=== PATIENT | female | born 1955 | race Two or more races ===

== ENCOUNTER 2017-09-12 22:36 | Emergency (ER) | payer MEDICARE, OTHER ==
[~2017-09-12] VITALS: Ht 165.1 cm; Wt 66.0 kg
[2017-09-12] MEDS ORDERED: SODIUM CHLORIDE 0.9% 1,000 ML IV ONE (23:01)
[2017-09-12 23:14] VITALS: BP 128/62
[2017-09-12 23:25] LABS: BASOPHILS % 0.6 % (0.0-2.0); EOSINOPHILS % 0.8 % (0.0-5.0); HEMATOCRIT. 28.6 % (36.0-48.0); HEMOGLOBIN. 9.5 g/dL (12.0-16.0); LYMPHOCYTES % 15.4 % (20.0-50.0); MEAN CORPUSCULAR HEMOGLOBIN 27.1 pg (28.0-32.0); MEAN CORPUSCULAR VOLUME 81.1 fL (81.0-99.0); MEAN PLATELET VOLUME 6.9 fl (7.4-10.4); MONOCYTES % 9.3 % (2.0-8.0); NEUTROPHILS % 73.9 % (40.0-76.0); PLATELET 480 x1000/uL (130-400); RED BLOOD CELL COUNT 3.53 mill/uL (4.2-5.4); RED CELL DISTRIBUTION WIDTH 14.1 % (11.6-14.6)
[2017-09-12 23:32] LABS: INR 1.1; PROTHROMBIN TIME 11.1 sec (9.4-11.6)
[2017-09-12 23:37] LABS: AMMONIA 22 uMol/L (<32)
[2017-09-12 23:42] LABS: CARBON DIOXIDE 27 mEq/L (21-32); CHLORIDE 99 mEq/L (98-107); CREATINE KINASE 26 IU/L (26-192); ETHANOL BLOOD < 10 mg/dL; TROPONIN I < 0.02 ng/mL (0.00-0.04)
[2017-09-13] MEDS ORDERED: KCL 20MEQ/100ML PREMIX 100 ML IV ONE (00:15)
[2017-09-13] MEDS ORDERED: SODIUM CHLORIDE 0.9% 1,000 ML IV ONE (00:17)
== END 2017-09-13 00:15 | disposition left against medical advice (07) ==
LOC: ER 22:36
DX: R55 Syncope and collapse (principal); E87.6 Hypokalemia; E87.2 Acidosis; I10 Essential (primary) hypertension; E78.00 Pure hypercholesterolemia, unspecified; G30.9 Alzheimer's disease, unspecified; N81.10 Cystocele, unspecified; F02.80 Dementia in other diseases classified elsewhere, unspecified severity, without behavioral disturbance, psychotic disturbance, mood disturbance, and anxiety; Z90.710 Acquired absence of both cervix and uterus
CPT/HCPCS: 36415; 80053; 82140; 82550; 83605; 83690; 84443; 84484; 85025; 85610; 93005; 96360; 99285; G0482; J7030; A4315

== ENCOUNTER 2019-01-24 11:56 | Emergency (ER) | payer MEDICARE, MEDICAID ==
[~2019-01-24] VITALS: Ht 165.1 cm; Wt 41.0 kg
[2019-01-24 12:03] VITALS: BP 120/80
== END 2019-01-24 12:37 | disposition left against medical advice (07) ==
LOC: ER 11:56
DX: Z53.21 Procedure and treatment not carried out due to patient leaving prior to being seen by health care provider (principal)

== ENCOUNTER 2019-02-23 12:38 | Emergency (ER) | payer MEDICARE, MEDICAID ==
[~2019-02-23] VITALS: Ht 165.1 cm; Wt 60.0 kg
[2019-02-23] MEDS ORDERED: SODIUM CHLORIDE 0.9% 1,000 ML IV ONE (12:55)
[2019-02-23 13:17] LABS: BASOPHILS % 0.8 % (0.0-2.0); EOSINOPHILS % 2.9 % (0.0-5.0); HEMATOCRIT. 28.8 % (36.0-48.0); HEMOGLOBIN. 8.5 g/dL (12.0-16.0); LYMPHOCYTES % 30.5 % (20.0-50.0); MEAN CORPUSCULAR HEMOGLOBIN 20.8 pg (28.0-32.0); MEAN CORPUSCULAR VOLUME 70.1 fL (81.0-99.0); MEAN PLATELET VOLUME 7.3 fl (7.4-10.4); MONOCYTES % 7.9 % (2.0-8.0); NEUTROPHILS % 57.9 % (40.0-76.0); PLATELET 398 x1000/uL (130-400); RED BLOOD CELL COUNT 4.11 mill/uL (4.2-5.4); RED CELL DISTRIBUTION WIDTH 18.4 % (11.6-14.6)
[2019-02-23 13:22] LABS: CLARITY URINE CLOUDY (CLEAR); COLOR URINE YELLOW (YELLOW); KETONES URINE NEGATIVE (NEGATIVE); LEUKOCYTE ESTERASE URINE TRACE (NEGATIVE); NITRITE URINE POSITIVE (NEGATIVE); OCCULT BLOOD URINE NEGATIVE (NEGATIVE); PH URINE 6.5 (4.5-8.0); PROTEIN URINE NEGATIVE (NEGATIVE); SPECIFIC GRAVITY URINE 1.015 (1.005-1.030); UROBILINOGEN URINE 0.2 E.U./dL (0.2-1.0)
[2019-02-23 13:25] LABS: CHLORIDE 112 mEq/L (98-107)
[2019-02-23 13:34] LABS: PROTHROMBIN TIME 9.7 sec (9.1-11.1)
[2019-02-23] MEDS ORDERED: LORAZEPAM 2MG/ML CPJ IV ONE (14:00)
[2019-02-23] MEDS ORDERED: CEFTRIAXONE 1 G PREMIX 50 ML IV ONE (14:00)
[2019-02-23] MEDS ORDERED: CLONAZEPAM 0.5MG TABLET PO ONE (14:30)
[2019-02-23 17:00] VITALS: BP 129/71
== END 2019-02-23 17:00 | disposition left against medical advice (07) ==
LOC: ER 12:38 → EDBEDREQ 14:31 → ER 17:00 → CANBEDREQ 20:26
DX: N39.0 Urinary tract infection, site not specified (principal); F03.90 Unspecified dementia, unspecified severity, without behavioral disturbance, psychotic disturbance, mood disturbance, and anxiety; E78.00 Pure hypercholesterolemia, unspecified; I10 Essential (primary) hypertension; R56.9 Unspecified convulsions
CPT/HCPCS: 36415; 71045; 80053; 81003; 83605; 84145; 84484; 85025; 85610; 87040; 87077; 87086; 87186; 93005; 96361; 96365; 96366; 99284; J0696; J7030

== ENCOUNTER 2020-08-31 22:26 | Inpatient (IN) | payer MEDICARE, MEDICAID ==
[~2020-08-31] VITALS: Ht 157.5 cm; Wt 44.0 kg
[2020-08-31] MEDS ORDERED: SODIUM CHLORIDE 0.9% 1,000 ML IV ONE (22:45)
[2020-08-31] MEDS ORDERED: AMPICILLIN SOD/SULBACTAM NA 1.5 G in SODIUM CHLORIDE 0.9% 50 ML IV SCH (23:00)
[2020-08-31 23:46] LABS: HEMATOCRIT. 36.7 % (36.0-48.0); HEMOGLOBIN. 11.8 g/dL (12.0-16.0); MEAN CORPUSCULAR HEMOGLOBIN 29.9 pg (28.0-32.0); MEAN CORPUSCULAR VOLUME 93.3 fL (81.0-99.0); MEAN PLATELET VOLUME 8.7 fl (7.4-10.4); PLATELET 258 x1000/uL (130-400); RED BLOOD CELL COUNT 3.93 mill/uL (4.2-5.4); RED CELL DISTRIBUTION WIDTH 14.9 % (11.6-14.6)
[2020-08-31 23:52] LABS: CHLORIDE 111 mEq/L (98-107)
[2020-08-31 23:53] LABS: INR 1.3; PROTHROMBIN TIME 13.1 sec (9.6-11.0)
[2020-09-01] VITALS (44 sets, daily range): BP systolic 91–150; BP diastolic 37–102
[2020-09-01 00:04] LABS: CLARITY URINE TURBID (CLEAR); COLOR URINE DARK YELLOW (YELLOW); KETONES URINE TRACE (NEGATIVE); LEUKOCYTE ESTERASE URINE 3+ (NEGATIVE); NITRITE URINE NEGATIVE (NEGATIVE); OCCULT BLOOD URINE 2+ (NEGATIVE); PROTEIN URINE 2+ (NEGATIVE); SPECIFIC GRAVITY URINE 1.019 (1.005-1.030)
[2020-09-01] MEDS ORDERED: AMPICILLIN SOD/SULBACTAM NA 1.5 G in SODIUM CHLORIDE 0.9% 50 ML IV NR (00:15)
[2020-09-01] MEDS ORDERED: SODIUM CHLORIDE 0.9% 1,000 ML IV NR (00:15)
[2020-09-01 00:22] LABS: *BARBITURATES SCREEN URINE NEGATIVE (NEGATIVE)
[2020-09-01 00:23] LABS: *AMPHETAMINES SCREEN URINE NEGATIVE (NEGATIVE); *BENZODIAZEPINES SCREEN URINE NEGATIVE (NEGATIVE); *COCAINE SCREEN URINE NEGATIVE (NEGATIVE); METHADONE URINE SCREEN NEGATIVE (NEGATIVE)
[2020-09-01 00:24] LABS: CANNABINOID URINE SCREEN NEGATIVE (NEGATIVE); OPIATES URINE SCREEN NEGATIVE (NEGATIVE); PHENCYCLIDINE URINE SCREEN NEGATIVE (NEGATIVE)
[2020-09-01] MEDS ORDERED: FUROSEMIDE 40MG/4ML VIAL IVP NR (01:00)
[2020-09-01] MEDS ORDERED: INSULIN REGULAR (HUMULIN R) 300UNITS/3ML SUBCUT ONE (01:00)
[2020-09-01] MEDS ORDERED: DEXTROSE 50% WATER 50ML SYRINGE IV ONE (01:00)
[2020-09-01] MEDS ORDERED: CALCIUM GLUCONATE 100MG/ML 10ML VIAL IV ONE (01:00)
[2020-09-01] MEDS ORDERED: NOREPINEPHRINE 8MG/250ML PMX 250 ML IV ONE (04:30)
[2020-09-01 05:16] LABS: PLATELET ESTIMATE NORMAL
[2020-09-01] MEDS ORDERED: ONDANSETRON HCL 4MG/2ML INJ IV PRN (11:00)
[2020-09-01] MEDS ORDERED: IPRATROPIUM/ALBUTEROL 0.5-3(2.5)MG/3ML NEB HHN PRN (11:00)
[2020-09-01] MEDS ORDERED: NOREPINEPHRINE 8 MG in DEXT 5% WATER 242 ML IV PRN (11:00)
[2020-09-01] MEDS ORDERED: DOCU-138 PO (11:12)
[2020-09-01] MEDS ORDERED: DIVA500T3 PO (11:12)
[2020-09-01] MEDS ORDERED: QUET25TA PO (11:12)
[2020-09-01] MEDS ORDERED: GLYC2TAB21 PO (11:12)
[2020-09-01] MEDS ORDERED: CLON0.5T PO (11:12)
[2020-09-01] MEDS ORDERED: CITA20TA19 PO (11:12)
[2020-09-01] MEDS ORDERED: SENN-170 PO (11:12)
[2020-09-01] MEDS ORDERED: TOPUD PO (11:12)
[2020-09-01] MEDS: DIVALPROEX SODIUM 500MG DR TABLET PO SCH ×2 (12:00→20:31)
[2020-09-01] MEDS ORDERED: DOCUSATE SODIUM 100MG CAPSULE PO SCH (12:00)
[2020-09-01] MEDS ORDERED: GLYCOPYRROLATE 1MG TABLET PO SCH (13:00)
[2020-09-01] MEDS: MIDODRINE HCL 5MG TABLET PO SCH ×2 (13:00→17:31)
[2020-09-01] MEDS: PIPERACILLIN/TAZOBACTAM 3.375 G in DEXT 5% WATER 100 ML IV SCH ×2 (13:19→17:31)
[2020-09-01] MEDS: DEXT 5%/0.45% NACL 1000ML 1,000 ML IV SCH (13:22)
[2020-09-01] MEDS: CITALOPRAM HYDROBROMIDE 10MG TABLET PO SCH (15:02)
[2020-09-01] MEDS: DOCUSATE SODIUM SUGAR FREE 100MG/10ML UDC NG SCH (15:02)
[2020-09-01] MEDS: SENNOSIDES 8.6MG TABLET PO SCH ×2 (15:03→20:31)
[2020-09-02] VITALS (43 sets, daily range): BP systolic 91–185; BP diastolic 25–142
[2020-09-02] MEDS: DEXT 5%/0.45% NACL 1000ML 1,000 ML IV SCH ×2 (00:20→18:48)
[2020-09-02] MEDS ORDERED: VANCOMYCIN 1250MG in DEXTROSE 5% WATER 250ML IV NR (01:00)
[2020-09-02 05:30] LABS: HEMATOCRIT. 32.1 % (36.0-48.0); HEMOGLOBIN. 10.2 g/dL (12.0-16.0); MEAN CORPUSCULAR HEMOGLOBIN 29.7 pg (28.0-32.0); MEAN CORPUSCULAR VOLUME 93.6 fL (81.0-99.0); MEAN PLATELET VOLUME 8.4 fl (7.4-10.4); PLATELET 181 x1000/uL (130-400); RED BLOOD CELL COUNT 3.43 mill/uL (4.2-5.4)
[2020-09-02 05:39] LABS: CHLORIDE 114 mEq/L (98-107)
[2020-09-02] MEDS: PIPERACILLIN/TAZOBACTAM 3.375 G in DEXT 5% WATER 100 ML IV SCH ×6 (05:44→23:48)
[2020-09-02] MEDS: SENNOSIDES 8.6MG TABLET PO SCH ×2 (09:40→20:24)
[2020-09-02] MEDS: DOCUSATE SODIUM SUGAR FREE 100MG/10ML UDC NG SCH (09:40)
[2020-09-02] MEDS: CITALOPRAM HYDROBROMIDE 10MG TABLET PO SCH (09:41)
[2020-09-02] MEDS: DIVALPROEX SODIUM 500MG DR TABLET PO SCH ×2 (09:41→20:24)
[2020-09-02] MEDS: MIDODRINE HCL 5MG TABLET PO SCH ×3 (09:41→17:00)
[2020-09-02 09:48] LABS: PLATELET ESTIMATE NORMAL
[2020-09-02] MEDS ORDERED: POTASSIUM CHLORIDE 20MEQ TABLET SR PO SCH (11:15)
[2020-09-02] MEDS ORDERED: LACTULOSE 20G/30ML UDC PO SCH (13:00)
[2020-09-02] MEDS: ACETYLCYSTEINE 100MG/ML 10% VIAL 4ML INH SCH ×2 (14:00→20:47)
[2020-09-02] MEDS: VANCOMYCIN 1 G PREMIX 200 ML IV SCH (15:45)
[2020-09-02] MEDS: PANTOPRAZOLE SODIUM 40 MG/VIAL IV SCH (18:47)
[2020-09-02] MEDS: IPRATROPIUM/ALBUTEROL 0.5-3(2.5)MG/3ML NEB HHN SCH (20:39)
[2020-09-03] VITALS (36 sets, daily range): BP systolic 74–163; BP diastolic 29–111
[2020-09-03] MEDS: ACETAMINOPHEN 325MG TABLET PO PRN ×2 (01:02→22:14)
[2020-09-03] MEDS: IPRATROPIUM/ALBUTEROL 0.5-3(2.5)MG/3ML NEB HHN SCH ×4 (02:15→20:58)
[2020-09-03] MEDS: PIPERACILLIN/TAZOBACTAM 3.375 G in DEXT 5% WATER 100 ML IV SCH ×3 (05:14→18:00)
[2020-09-03 05:48] LABS: HEMATOCRIT. 32.9 % (36.0-48.0); HEMOGLOBIN. 10.7 g/dL (12.0-16.0); MEAN CORPUSCULAR HEMOGLOBIN 29.9 pg (28.0-32.0); MEAN CORPUSCULAR VOLUME 91.7 fL (81.0-99.0); MEAN PLATELET VOLUME 8.5 fl (7.4-10.4); PLATELET 191 x1000/uL (130-400); RED BLOOD CELL COUNT 3.59 mill/uL (4.2-5.4); RED CELL DISTRIBUTION WIDTH 14.1 % (11.6-14.6)
[2020-09-03 05:52] LABS: CHLORIDE 110 mEq/L (98-107)
[2020-09-03] MEDS ORDERED: KCL 20MEQ/100ML PREMIX 100 ML IV ONE ×3 (06:15→10:15)
[2020-09-03] MEDS ORDERED: POTASSIUM CHLORIDE INJ 60 MEQ in DEXT 5% WATER 500 ML IV NR (07:30)
[2020-09-03 08:30] LABS: PLATELET ESTIMATE NORMAL
[2020-09-03] MEDS: MIDODRINE HCL 5MG TABLET PO SCH ×3 (08:42→16:55)
[2020-09-03] MEDS: KCL 20MEQ/100ML PREMIX 100 ML IV SCH ×3 (08:42→13:25)
[2020-09-03] MEDS: PANTOPRAZOLE SODIUM 40 MG/VIAL IV SCH (08:43)
[2020-09-03] MEDS: DOCUSATE SODIUM SUGAR FREE 100MG/10ML UDC NG SCH (08:43)
[2020-09-03] MEDS: SENNOSIDES 8.6MG TABLET PO SCH ×2 (08:43→22:09)
[2020-09-03] MEDS: CITALOPRAM HYDROBROMIDE 10MG TABLET PO SCH (08:43)
[2020-09-03] MEDS: DIVALPROEX SODIUM 500MG DR TABLET PO SCH ×2 (08:43→20:40)
[2020-09-03] MEDS: ENOXAPARIN 60MG/0.6ML SYR SUBCUT SCH ×2 (08:43→20:39)
[2020-09-03 08:45] LABS: BG BASE EXCESS 1.3 mmol/L (-2.0-2.0); BG CARBOXYHEMOGLOBIN 0.3 % (0.5-1.5); BG DEOXYHEMOGLOBIN 1.6 % (0.0-5.0); BG FRACTION INSPIRED OXYGEN 32; BG HCO3 ACT 24.3 mmol/L (22.0-26.0); BG METHEMOGLOBIN 0.3 % (0.0-1.5); BG OXYGEN SATURATION 98.4 % (92.0-98.5); BG OXYHEMOGLOBIN 97.8 % (94.0-97.0); BG PCO2 33.2 mmHg (35.0-45.0); BG PH 7.483 (7.350-7.450); BG PO2 128.4 mmHg (75.0-100.0); BG SAMPLE SITE LEFT RADIAL; BG VENT MODE NASAL CANNULA
[2020-09-03] MEDS: DEXT 5%/0.45% NACL 1000ML 1,000 ML IV SCH ×2 (08:45→16:20)
[2020-09-03] MEDS: ACETYLCYSTEINE 100MG/ML 10% VIAL 4ML INH SCH (09:10)
[2020-09-03] MEDS: VANCOMYCIN 1 G PREMIX 200 ML IV SCH (10:17)
[2020-09-03] MEDS ORDERED: POTASSIUM CHLORIDE 20MEQ TABLET SR PO NR (11:15)
[2020-09-03 12:08] LABS: PHOSPHORUS 2.6 mg/dL (2.5-4.9)
[2020-09-03] MEDS: GLYCOPYRROLATE 1MG TABLET PO SCH ×2 (13:27→20:40)
[2020-09-04] VITALS (16 sets, daily range): BP systolic 101–146; BP diastolic 51–99
[2020-09-04] MEDS: PIPERACILLIN/TAZOBACTAM 3.375 G in DEXT 5% WATER 100 ML IV SCH ×2 (00:10→06:30)
[2020-09-04] MEDS: ACETYLCYSTEINE 100MG/ML 10% VIAL 4ML INH SCH ×2 (01:17→08:40)
[2020-09-04] MEDS: IPRATROPIUM/ALBUTEROL 0.5-3(2.5)MG/3ML NEB HHN SCH ×4 (01:17→19:53)
[2020-09-04] MEDS: VANCOMYCIN 1 G PREMIX 200 ML IV SCH ×2 (04:27→21:08)
[2020-09-04] MEDS: DEXT 5%/0.45% NACL 1000ML 1,000 ML IV SCH ×3 (04:28→20:58)
[2020-09-04 06:49] LABS: BASOPHILS % 0.3 % (0.0-2.0); EOSINOPHILS % 0.3 % (0.0-5.0); HEMATOCRIT. 31.7 % (36.0-48.0); HEMOGLOBIN. 10.3 g/dL (12.0-16.0); LYMPHOCYTES % 10.6 % (20.0-50.0); MEAN CORPUSCULAR HEMOGLOBIN 29.8 pg (28.0-32.0); MEAN CORPUSCULAR VOLUME 91.2 fL (81.0-99.0); MEAN PLATELET VOLUME 9.1 fl (7.4-10.4); MONOCYTES % 8.3 % (2.0-8.0); NEUTROPHILS % 80.5 % (40.0-76.0); PLATELET 208 x1000/uL (130-400); RED BLOOD CELL COUNT 3.47 mill/uL (4.2-5.4); RED CELL DISTRIBUTION WIDTH 14.3 % (11.6-14.6)
[2020-09-04 07:09] LABS: CHLORIDE 114 mEq/L (98-107)
[2020-09-04 08:05] LABS: BG CARBOXYHEMOGLOBIN 0.3 % (0.5-1.5); BG DEOXYHEMOGLOBIN 2.4 % (0.0-5.0); BG FRACTION INSPIRED OXYGEN 28; BG METHEMOGLOBIN 0.3 % (0.0-1.5); BG OXYGEN SATURATION 97.6 % (92.0-98.5); BG PCO2 32.5 mmHg (35.0-45.0); BG PH 7.487 (7.350-7.450); BG SAMPLE SITE LEFT RADIAL; BG TOTAL HEMOGLOBIN 10.3 g/dL (12.0-18.0); BG VENT MODE NASAL CANNULA
[2020-09-04] MEDS ORDERED: POTASSIUM CHLORIDE 20MEQ TABLET SR PO SCH (08:30)
[2020-09-04] MEDS: PANTOPRAZOLE SODIUM 40 MG/VIAL IV SCH (10:03)
[2020-09-04] MEDS: DIVALPROEX SODIUM 500MG DR TABLET PO SCH ×2 (10:05→20:51)
[2020-09-04] MEDS: SENNOSIDES 8.6MG TABLET PO SCH ×2 (10:05→20:51)
[2020-09-04] MEDS: ENOXAPARIN 60MG/0.6ML SYR SUBCUT SCH ×2 (10:06→20:59)
[2020-09-04] MEDS: MIDODRINE HCL 5MG TABLET PO SCH ×3 (10:06→17:00)
[2020-09-04] MEDS: GLYCOPYRROLATE 1MG TABLET PO SCH ×2 (10:30→20:51)
[2020-09-04] MEDS: DOCUSATE SODIUM SUGAR FREE 100MG/10ML UDC NG SCH (10:30)
[2020-09-04] MEDS: CITALOPRAM HYDROBROMIDE 10MG TABLET PO SCH (10:30)
[2020-09-04] MEDS: CEFAZOLIN 1000MG PREMIX 50 ML IV SCH ×2 (12:35→18:31)
[2020-09-04] MEDS ORDERED: SODIUM BICARBONATE 4% (2.4MEQ) 5ML VIAL IV ONE (13:02)
[2020-09-04] MEDS ORDERED: LIDOCAINE HCL 1% 20ML VIAL (Pyxis) INJ ONE (13:02)
[2020-09-04] MEDS ORDERED: POTASSIUM CHLORIDE 20MEQ TABLET SR PO NR (13:35)
[2020-09-05] VITALS (12 sets, daily range): BP systolic 120–163; BP diastolic 64–96
[2020-09-05] MEDS: ACETYLCYSTEINE 100MG/ML 10% VIAL 4ML INH SCH ×4 (00:04→13:34)
[2020-09-05] MEDS: IPRATROPIUM/ALBUTEROL 0.5-3(2.5)MG/3ML NEB HHN SCH ×4 (01:59→20:17)
[2020-09-05] MEDS: CEFAZOLIN 1000MG PREMIX 50 ML IV SCH ×3 (02:32→23:04)
[2020-09-05 06:26] LABS: BASOPHILS % 0.3 % (0.0-2.0); EOSINOPHILS % 0.5 % (0.0-5.0); HEMATOCRIT. 33.5 % (36.0-48.0); LYMPHOCYTES % 8.3 % (20.0-50.0); MEAN PLATELET VOLUME 8.9 fl (7.4-10.4); MONOCYTES % 9.3 % (2.0-8.0); NEUTROPHILS % 81.6 % (40.0-76.0); PLATELET 237 x1000/uL (130-400); RED BLOOD CELL COUNT 3.68 mill/uL (4.2-5.4); RED CELL DISTRIBUTION WIDTH 14.2 % (11.6-14.6)
[2020-09-05 06:27] LABS: CHLORIDE 110 mEq/L (98-107)
[2020-09-05] MEDS: PANTOPRAZOLE SODIUM 40 MG/VIAL IV SCH (08:59)
[2020-09-05] MEDS: GLYCOPYRROLATE 1MG TABLET PO SCH ×2 (08:59→23:05)
[2020-09-05] MEDS: MIDODRINE HCL 5MG TABLET PO SCH (09:00)
[2020-09-05] MEDS: SENNOSIDES 8.6MG TABLET PO SCH ×2 (09:00→23:03)
[2020-09-05] MEDS: DOCUSATE SODIUM SUGAR FREE 100MG/10ML UDC NG SCH (09:00)
[2020-09-05] MEDS: DIVALPROEX SODIUM 500MG DR TABLET PO SCH ×2 (09:00→23:03)
[2020-09-05] MEDS: ENOXAPARIN 60MG/0.6ML SYR SUBCUT SCH ×2 (09:01→23:04)
[2020-09-05] MEDS: CITALOPRAM HYDROBROMIDE 10MG TABLET PO SCH (09:09)
[2020-09-05] MEDS ORDERED: POTASSIUM CHLORIDE 20MEQ TABLET SR PO SCH (09:45)
[2020-09-05] MEDS ORDERED: POTASSIUM CHLORIDE INJ 40 MEQ in DEXT 5% WATER 250 ML IV SCH (10:00)
[2020-09-05] MEDS ORDERED: POTASSIUM CHLORIDE 20MEQ/PACKET PO SCH (10:45)
[2020-09-05] MEDS ORDERED: CEPH500C2 MT (12:31)
[2020-09-05] MEDS ORDERED: VANCOMYCIN 750 MG PREMIX 150 ML IV SCH (13:00)
[2020-09-05] MEDS ORDERED: DAPTOMYCIN 250 MG in SODIUM CHLORIDE 0.9% 50 ML IV SCH (14:00)
[2020-09-06] VITALS (7 sets, daily range): BP systolic 127–151; BP diastolic 67–93
[2020-09-06] MEDS: IPRATROPIUM/ALBUTEROL 0.5-3(2.5)MG/3ML NEB HHN SCH ×2 (00:05→08:47)
[2020-09-06] MEDS: CEFAZOLIN 1000MG PREMIX 50 ML IV SCH (02:51)
[2020-09-06] MEDS: DEXT 5%/0.45% NACL 1000ML 1,000 ML IV SCH (04:22)
[2020-09-06 06:24] LABS: HEMATOCRIT. 32.9 % (36.0-48.0); HEMOGLOBIN. 10.5 g/dL (12.0-16.0); MEAN CORPUSCULAR HEMOGLOBIN 29.2 pg (28.0-32.0); MEAN CORPUSCULAR VOLUME 91.7 fL (81.0-99.0); MEAN PLATELET VOLUME 8.6 fl (7.4-10.4); PLATELET 269 x1000/uL (130-400); RED BLOOD CELL COUNT 3.59 mill/uL (4.2-5.4); RED CELL DISTRIBUTION WIDTH 14.3 % (11.6-14.6)
[2020-09-06 06:28] LABS: CHLORIDE 110 mEq/L (98-107)
[2020-09-06] MEDS: ACETYLCYSTEINE 100MG/ML 10% VIAL 4ML INH SCH (08:47)
[2020-09-06] MEDS ORDERED: FAMOTIDINE 20MG/2ML VIAL IV SCH (09:00)
[2020-09-06] MEDS: DOCUSATE SODIUM SUGAR FREE 100MG/10ML UDC NG SCH (09:33)
[2020-09-06] MEDS: ENOXAPARIN 60MG/0.6ML SYR SUBCUT SCH (09:33)
[2020-09-06] MEDS: GLYCOPYRROLATE 1MG TABLET PO SCH (09:34)
[2020-09-06] MEDS: SENNOSIDES 8.6MG TABLET PO SCH (09:34)
[2020-09-06] MEDS: DIVALPROEX SODIUM 500MG DR TABLET PO SCH (09:34)
[2020-09-06 10:34] LABS: PLATELET ESTIMATE NORMAL
[2020-09-06 12:08] LABS: CREATINE KINASE 18 IU/L (26-192)
== END 2020-09-06 11:06 | disposition home health service (06) | DRG 871 ==
LOC: ER 22:26 → CVICU 09-01 01:18 → EDBEDREQTM 09-01 01:20 → EDBEDREQ 09-01 01:20 → EDBEDREQDT 09-01 01:20 → CANRESERV 09-01 02:03 → ENRESERV 09-01 02:03 → EDBEDREQSVC 09-01 05:00 → ENRESERV 09-01 05:03 → CANRESERV 09-01 05:03 → ENRESERV 09-01 09:03 → 5EST 09-03 17:50
PROVIDERS: ADMIT Internal Medicine; ATTEND Internal Medicine
PROC: B54BZZA Ultrasonography of Right Lower Extremity Veins, Guidance (ICD-10-PCS; principal; 2020-09-01)
PROC: 06HY33Z Insertion of Infusion Device into Lower Vein, Percutaneous Approach (ICD-10-PCS; 2020-09-01)
PROC: 02HV33Z Insertion of Infusion Device into Superior Vena Cava, Percutaneous Approach (ICD-10-PCS; 2020-09-04)
PROC: B548ZZA Ultrasonography of Superior Vena Cava, Guidance (ICD-10-PCS; 2020-09-04)
PROC: B5181ZA Fluoroscopy of Superior Vena Cava using Low Osmolar Contrast, Guidance (ICD-10-PCS; 2020-09-04)
DX: A41.9 Sepsis, unspecified organism (principal); R65.21 Severe sepsis with septic shock; E43 Unspecified severe protein-calorie malnutrition; J69.0 Pneumonitis due to inhalation of food and vomit; J96.00 Acute respiratory failure, unspecified whether with hypoxia or hypercapnia; I33.0 Acute and subacute infective endocarditis; E87.2 Acidosis; N13.6 Pyonephrosis; J91.8 Pleural effusion in other conditions classified elsewhere; I82.413 Acute embolism and thrombosis of femoral vein, bilateral; I50.30 Unspecified diastolic (congestive) heart failure; Z68.1 Body mass index [BMI] 19.9 or less, adult; K44.9 Diaphragmatic hernia without obstruction or gangrene; Z66 Do not resuscitate; I44.7 Left bundle-branch block, unspecified; I11.0 Hypertensive heart disease with heart failure; E78.00 Pure hypercholesterolemia, unspecified; G30.9 Alzheimer's disease, unspecified; F02.80 Dementia in other diseases classified elsewhere, unspecified severity, without behavioral disturbance, psychotic disturbance, mood disturbance, and anxiety; E87.6 Hypokalemia; D64.9 Anemia, unspecified; B96.1 Klebsiella pneumoniae [K. pneumoniae] as the cause of diseases classified elsewhere; E87.5 Hyperkalemia; E87.8 Other disorders of electrolyte and fluid balance, not elsewhere classified; E78.5 Hyperlipidemia, unspecified; Z74.01 Bed confinement status; Z88.2 Allergy status to sulfonamides; Z90.710 Acquired absence of both cervix and uterus; Z82.49 Family history of ischemic heart disease and other diseases of the circulatory system; Z79.899 Other long term (current) drug therapy
CPT/HCPCS: 36415; 36573; 36600; 71045; 71250; 74176; 80048; 80053; 80202; 80305; 81003; 82375; 82550; 82805; 82962; 83605; 83735; 83880; 84100; 84132; 84145; 84484; 85025; 85651; 86140; 86850; 86900; 87077; 87186; 92610; 93005; 93306; 93970; 94640; 99291; A6261; C1725; C9113; J0295; J0610; J0690; J0878; J1650; J1815; J1940; J2543; J3370; J3480; J3490; J7030; J7060; J7608